=== PATIENT | female | born 1995 | race Caucasian/White ===

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

== ENCOUNTER 2018-08-28 18:38 | Outpatient (CLI) | payer OTHER ==
[~2018-08-28] VITALS: Ht 144.8 cm; Wt 90.6 kg
[~2018-08-28 18:38] MED LIST changes: +ACET500C5 PO; +NAPR-985 PO
[2018-08-28 19:04] VITALS: Ht 144.8 cm; Wt 90.6 kg
--- NOTE | 2018-08-28 22:21 | PN ---
Triage Information Date/Time Reason for visit: Abd/pelvic pain Weeks of Gestation 21 weeks /Para Diabetes: none Hypertention: none Objective Vital Signs Date Temp Pulse Resp B/P (MAP) Pulse Ox O2 O2 Flow FiO2 Time Delivery Rate 08/28/18 98.0 19:05 Heart Rate: 130's Contractions: None Results/Medications Result Diagram: 08/28/182058 Results 24 hrs Laboratory Tests Test 08/28/18 20:45 08/28/18 20:59 Urine Color YELLOW Urine Clarity CLEAR Urine pH 6.0 Urine Specific [place] 1.019 Urine Ketones TRACE A Urine Nitrite NEGATIVE Urine Bilirubin NEGATIVE Urine Urobilinogen NEGATIVE Urine Leukocyte Esterase NEGATIVE Urine Hemoglobin NEGATIVE Urine Glucose NEGATIVE Urine Total Protein NEGATIVE White Blood Count 12.0 #H Red Blood Count 3.95 #L Hemoglobin 11.2 L Hematocrit 33.3 #L Mean Corpuscular Volume 84.3 Mean Corpuscular Hemoglobin 28.4 L Mean Corpuscular Hemoglobin Concent 33.6 Red Cell Distribution Width 13.6 Platelet Count 224 # Mean Platelet Volume 10.5 H Immature Granulocytes % 1.000 H Neutrophils % 73.6 Lymphocytes % 19.9 Monocytes % 3.6 Eosinophils % 1.6 Basophils % 0.3 Nucleated Red Blood Cells % 0.0 Immature Granulocytes # 0.120 H Neutrophils # 8.8 H Lymphocytes # 2.4 Monocytes # 0.4 Eosinophils # 0.2 Basophils # 0.0 Nucleated Red Blood Cells # 0.0 Imaging Results Cervical length normal Disposition: Discharge Assessment/Plan Follow up in clinic within one week DIVYA LIANG MD August 28, 2018 22:21
--- NOTE | 2018-08-28 23:06 | TRIAGE ---
OB Triage Datetime Report Generated by CPN: 08/28/2018 23:06 Datetime: 08/28/2018 22:14 Monitor Mode: External (Annotations: removed) Datetime: 08/28/2018 22:00 Labor Evaluation Frequency: none Monitor Mode: External Datetime: 08/28/2018 21:55 Pain Assessment Pain Scale: 5 Pain Presence: Intermittent Pain Type: Cramping Pain Location: Abdomen Pain Relief Measures: Comfort Measures Datetime: 08/28/2018 21:00 Labor Evaluation Frequency: none Monitor Mode: External Datetime: 08/28/2018 20:00 Labor Evaluation Frequency: none Monitor Mode: External Datetime: 08/28/2018 19:47 Stage of : OB Triage Assessment Type: Triage Maternal Assessment Level of Consciousness: Fully Conscious DTR's/Clonus: DTRs 2+; No Clonus Headache: Denies Blurred Vision: No Respiratory Effort: Unlabored; Regular Rhythm; Equal Expansion Breath Sounds, Left: Clear and Equal Breath Sounds, Right: Clear and Equal Nausea/Vomiting: Denies RUQ Epigastric Pain: Denies Lower Extremities Edema: None Degree: None Upper Extremities Edema: None Degree: None Facial Edema: None Temperature Route: Oral Fall Risk Assessment History of Falling: (0) No Secondary Diagnosis: (0) No Ambulatory Aid: (0) Bedrest/Nurse Assist IV Therapy: (0) No Gait: (0) Normal/Bedrest/Immobile Mental Status: (0) Oriented to Own Ability Fall Score: 0 Fall Risk Score Definition: No Risk: No action required Monitor Mode: External Contraction Comments: Abdomen soft. No contractions palpated Heart Rate Monitor Mode: Doppler (Annotations: heart ranges from 137bpm-162bpm) Pain Assessment Pain Scale: 8 Pain Presence: Intermittent Pain Type: Cramping Pain Location: Abdomen; Back Pain Relief Measures: Comfort Measures Datetime: 08/28/2018 19:00 Stage of : OB Triage Assessment Type: Triage Time of Arrival: 08/28/2018 18:25 EGA: 21.5 Arrived By: Ambulatory Arrived From: Home Chief Complaint: Decreased movement since 08/27/18 and Abdominal cramping Movement: Decreased Contractions: Irregular Rupture of Membranes: Denies Vaginal Bleeding: None Vaginal Discharge: Denies Recent Sexual Intercouse: Denies Abdominal Trauma: Not Applicable Patient Complaints: Contractions Time Provider Notified: 08/28/2018 20:05 Provider Notified: Dr. Nicholson Initial Plan: TOCO, DOPPLER CALL MD Maternal Assessment Level of Consciousness: Fully Conscious DTR's/Clonus: DTRs 2+; No Clonus Headache: Denies Blurred Vision: No Respiratory Effort: Unlabored; Regular Rhythm; Equal Expansion Breath Sounds, Left: Clear and Equal Breath Sounds, Right: Clear and Equal Nausea/Vomiting: Denies RUQ Epigastric Pain: Denies Lower Extremities Edema: None Degree: None Upper Extremities Edema: None Facial Edema: None Fall Risk Assessment History of Falling: (0) No Secondary Diagnosis: (0) No Ambulatory Aid: (0) Bedrest/Nurse Assist IV Therapy: (0) No Gait: (0) Normal/Bedrest/Immobile Mental Status: (0) Oriented to Own Ability Fall Score: 0 Fall Risk Score Definition: No Risk: No action required Monitor Mode: External Heart Rate Monitor Mode: Doppler (Annotations: 145) Pain Assessment Pain Scale: 0 Pain Presence: None/Denies Pain Type: N/A
== END 2018-08-28 22:25 | disposition home or self-care (01) ==
LOC: L-D 18:38 → OBT 18:38
PROVIDERS: ATTEND Obstetrics & Gynecology
DX: O26.892 Other specified pregnancy related conditions, second trimester (principal); R10.2 Pelvic and perineal pain; Z3A.21 21 weeks gestation of pregnancy
CPT/HCPCS: 76815; 76817; 81003; 85025; Z7500; G0463

== ENCOUNTER 2018-12-06 09:16 | Outpatient (CLI) | payer OTHER ==
[~2018-12-06] VITALS: Ht 144.8 cm; Wt 94.4 kg
[~2018-12-06 09:16] MED LIST changes: -ACET500C5 PO; -NAPR-985 PO; -ONDA4TAB14 PO; -TRAM50TA2 PO
[2018-12-06 09:32] VITALS: BP 128/81; PULSE 73; RESP 18; Ht 144.8 cm; Wt 94.4 kg
[2018-12-06] MEDS ORDERED: ACETAMINOPHEN 500 MG TAB PO STA (11:19)
== END 2018-12-06 12:43 | disposition home or self-care (01) ==
LOC: L-D 09:16 → OBT 09:16
PROVIDERS: ATTEND Obstetrics & Gynecology
DX: O62.9 Abnormality of forces of labor, unspecified (principal); Z3A.36 36 weeks gestation of pregnancy
CPT/HCPCS: 76818; 81001; 84112; Z7500; Z7610; G0463

== ENCOUNTER 2018-12-11 20:27 | Inpatient (IN) | payer OTHER ==
[~2018-12-11] VITALS: Ht 144.8 cm; Wt 94.7 kg
[~2018-12-11 20:27] MED LIST changes: +DOCU-144 PO; +FER325 PO; +IBUP-1542 PO
[2018-12-11 20:54] VITALS: Ht 144.8 cm; Wt 94.7 kg
[2018-12-11 20:57] VITALS: BP 125/75; PULSE 80; RESP 17
[2018-12-11] MEDS: LACTATED RINGER'S 1,000 ML IV SCH ×2 (21:37→23:09)
[2018-12-11] MEDS ORDERED: ACETAMINOPHEN 325 MG TAB PO ONE (23:00)
[2018-12-12] MEDS ORDERED: BETAMET NA PHOS/AC (6 MG/ML) 2 ML INJ SYG IM SCH (01:00)
[2018-12-12] MEDS ORDERED: TERBUTALINE 1 MG/ML INJ SC ONE (01:00)
[2018-12-12] MEDS ORDERED: OXYCODONE/ACETAMINOPHEN (5/325) TAB PO ONE (04:00)
[2018-12-12] MEDS: LACTATED RINGER'S 1,000 ML IV SCH ×2 (04:11→07:57)
[2018-12-12] MEDS ORDERED: CARBOPROST 250 MCG INJ IM PRN ×2 (07:30→09:30)
[2018-12-12] MEDS ORDERED: METHYLERGONOVINE 0.2 MG INJ IM PRN ×2 (07:30→09:30)
[2018-12-12] MEDS ORDERED: OXYTOCIN 30 UNITS/LR 500 ML IV PRN ×2 (07:30→09:30)
[2018-12-12] MEDS ORDERED: AMPICILLIN 2 GM/NS (PMX) 100 ML IV SCH (07:30)
[2018-12-12] MEDS ORDERED: MISOPROSTOL 200 MCG TAB PR PRN ×2 (07:30→09:30)
[2018-12-12] MEDS ORDERED: CEFAZOLIN 2 GM/50 ML (PMX) 50 ML IVPB ONE (07:31)
[2018-12-12] MEDS ORDERED: ONDANSETRON 4 MG INJ IV STA (07:36)
[2018-12-12] MEDS ORDERED: ONDANSETRON 4 MG INJ IV PRN ×2 (08:00)
[2018-12-12] MEDS ORDERED: CEFAZOLIN 2 GM/50 ML (PMX) 50 ML IVPB SCH (08:00)
[2018-12-12] MEDS ORDERED: FENTAnyl 50 MCG/ML VIAL IV PRN ×2 (08:00)
[2018-12-12] MEDS ORDERED: DIPHENHYDRAMINE 50 MG INJ IV PRN ×2 (08:00)
[2018-12-12] MEDS ORDERED: AZITHROMYCIN 500MG/NS (PMX) 250 ML IVPB ONE (08:00)
[2018-12-12] MEDS ORDERED: KETOROLAC 30 MG INJ IV PRN ×2 (08:00)
[2018-12-12] MEDS ORDERED: METOCLOPRAMIDE 10 MG INJ IV PRN (08:00)
[2018-12-12] MEDS ORDERED: HYDROmorphONE 1 MG/5 ML IV SYRINGE IV PRN ×2 (08:00)
[2018-12-12] MEDS ORDERED: ALBUTEROL 0.083% (NEB) 2.5 MG/3 ML AMP HHN PRN (08:00)
[2018-12-12] MEDS ORDERED: HYDROmorphONE 0.5 MG/0.5 ML SYG IV PRN ×2 (08:00)
[2018-12-12] MEDS ORDERED: METOCLOPRAMIDE 10 MG INJ IV ONE (08:00)
[2018-12-12] MEDS ORDERED: NALOXONE (0.4 MG/ML) INJ IV PRN (08:00)
[2018-12-12] MEDS ORDERED: morphine SULFATE/PF (10 MG/10 ML) INJ ONE (08:16)
[2018-12-12] MEDS ORDERED: EPHEDrine 25 MG/5 ML SYG ONE (08:16)
[2018-12-12] MEDS ORDERED: PHENYLephrine (100 MCG/ML) 10ML SYG ONE (08:16)
[2018-12-12] MEDS ORDERED: OXYTOCIN 30 UNITS/LR 500 ML BAG IV ONE (08:16)
[2018-12-12] MEDS ORDERED: NACL 0.9% 3 ML SYG IV SCH (09:30)
[2018-12-12] MEDS ORDERED: LANOLIN HPA 1 PKT TOP PRN (09:30)
[2018-12-12] MEDS: OXYTOCIN 30 UNITS/LR 500 ML IV SCH ×2 (10:49→18:14)
[2018-12-12 12:00] VITALS: BP 127/70; RESP 20
[2018-12-12] MEDS ORDERED: IBUPROFEN 600 MG TAB PO SCH (12:00)
[2018-12-12 12:45] VITALS: BP 131/80; PULSE 108; RESP 19
[2018-12-12 15:36] VITALS: BP 126/75; PULSE 113; RESP 17
[2018-12-12 20:00] VITALS: BP 123/70; PULSE 111; RESP 20
[2018-12-12 22:50] VITALS: BP 127/70; PULSE 107; RESP 18
[2018-12-13] VITALS: BP 127/74; PULSE 102; RESP 18
[2018-12-13 04:15] VITALS: BP 126/71; PULSE 87; RESP 18
[2018-12-13] MEDS: LACTATED RINGER'S 1,000 ML IV SCH (06:27)
[2018-12-13 08:30] VITALS: BP 115/65; PULSE 84; RESP 18
[2018-12-13] MEDS ORDERED: ALBUTEROL HFA 8 GM INHALER INH PRN (08:30)
[2018-12-13 11:51] VITALS: BP 116/66; PULSE 113; RESP 19
[2018-12-13] MEDS: IBUPROFEN 600 MG TAB PO SCH ×2 (12:00→17:41)
[2018-12-13 15:35] VITALS: BP 116/66; PULSE 113; RESP 21
[2018-12-13] MEDS: OXYCODONE/ACETAMINOPHEN (5/325) TAB PO PRN (18:46)
[2018-12-13 20:00] VITALS: BP 131/74; PULSE 103; RESP 18
[2018-12-13] MEDS: FERROUS SULFATE (EC) 325 MG TAB PO SCH (21:52)
[2018-12-14] MEDS: IBUPROFEN 600 MG TAB PO SCH ×5 (00:11→23:49)
[2018-12-14] MEDS: OXYCODONE/ACETAMINOPHEN (5/325) TAB PO PRN ×3 (02:47→21:15)
[2018-12-14 04:15] VITALS: BP 122/79; PULSE 98; RESP 18
[2018-12-14 08:00] VITALS: BP 112/65; PULSE 92; RESP 18
[2018-12-14] MEDS: FERROUS SULFATE (EC) 325 MG TAB PO SCH ×2 (08:47→21:15)
[2018-12-14 16:07] VITALS: BP 121/73; PULSE 93; RESP 18
[2018-12-14 20:15] VITALS: BP 127/65; PULSE 87; RESP 18
[2018-12-15 04:15] VITALS: BP 110/72; PULSE 89; RESP 18
[2018-12-15] MEDS: OXYCODONE/ACETAMINOPHEN (5/325) TAB PO PRN (05:03)
[2018-12-15] MEDS: IBUPROFEN 600 MG TAB PO SCH ×2 (06:23→12:36)
[2018-12-15 07:30] VITALS: BP 102/62; PULSE 73; RESP 18
[2018-12-15] MEDS: FERROUS SULFATE (EC) 325 MG TAB PO SCH (09:02)
== END 2018-12-15 17:45 | disposition home or self-care (01) | DRG 786 ==
LOC: OBT 20:27 → L-D 20:29 → OBT 12-12 07:20 → L-D 12-12 07:55 → PP1 12-12 11:52
PROVIDERS: ADMIT Obstetrics & Gynecology; ATTEND Obstetrics & Gynecology
PROC: 3E033VJ Introduction of Other Hormone into Peripheral Vein, Percutaneous Approach (ICD-10-PCS; 2018-12-12)
PROC: 10D00Z1 Extraction of Products of Conception, Low, Open Approach (ICD-10-PCS; principal; 2018-12-12 07:30)
DX: O65.5 Obstructed labor due to abnormality of maternal pelvic organs (principal); O60.13X0 Preterm labor second trimester with preterm delivery third trimester, not applicable or unspecified; D62 Acute posthemorrhagic anemia; O99.02 Anemia complicating childbirth; O34.211 Maternal care for low transverse scar from previous cesarean delivery; Z3A.36 36 weeks gestation of pregnancy; Z37.0 Single live birth
CPT/HCPCS: 36415; 76705; 76818; 80053; 80307; 81001; 84560; 85025; 85610; 85730; 86592; 86850; 86900; 86901; 87086; 87340; 96360; 96361; 96372; 99464; G0463; J0456; J0690; J0702; J1885; J2274; J2370; J2405; J2590; J2765; J3105; J7120